=== PATIENT | female | born 1960 | race Caucasian/White ===

== ENCOUNTER 2020-08-24 07:57 | Outpatient (CLI) | payer BC | END 2020-08-24 07:58 | disposition home or self-care (01) | LOC: CSHMAMMO 07:57 | PROVIDERS: ATTEND Obstetrics & Gynecology | DX: Z12.31 Encounter for screening mammogram for malignant neoplasm of breast (principal) | CPT/HCPCS: 77063; 77067 ==

== ENCOUNTER 2024-01-15 16:00 | Outpatient (CLI) | payer BC | END 2024-01-15 16:01 | disposition home or self-care (01) | LOC: CSHSLEEP 16:00 | PROVIDERS: ATTEND Internal Medicine | DX: R53.83 Other fatigue (principal); R06.83 Snoring; G47.33 Obstructive sleep apnea (adult) (pediatric) | CPT/HCPCS: 95800 ==